=== PATIENT | male | born 1940 | race Caucasian/White ===

== ENCOUNTER → 2018-09-14 | Outpatient (CLI) | payer MEDICARE, BC ==
[2018-09-14 11:14] LABS: HEMATOCRIT 42.1 % (42.0-52.0); MEAN CORPUSCULAR HEMOGLOBIN 30.8 pg (27.0-33.0); MEAN CORPUSCULAR HGB CONC 33.3 g/dl (32.0-36.5); MEAN CORPUSCULAR VOLUME 92.7 fl (80.0-96.0); PLATELET COUNT, AUTOMATED 235 10^3/uL (150-450); RED BLOOD COUNT 4.54 10^6/uL (4.30-6.10); RED CELL DISTRIBUTION WIDTH 13.4 % (11.5-14.5); WHITE BLOOD COUNT 8.6 10^3/uL (4.0-10.0)
[2018-09-14 11:25] LABS: INR 1.02; PROTHROMBIN TIME 13.5 SECONDS (12.1-14.4)
[2018-09-14 11:34] LABS: ERYTHROCYTE SEDIMENTATION RATE 9 mm/hr (0-20)
[2018-09-14 11:44] LABS: ALBUMIN 3.7 GM/DL (3.2-5.2); ALBUMIN/GLOBULIN RATIO 1.09 (1.00-1.93); ALKALINE PHOSPHATASE 78 U/L (45-117); ALT/SGPT 27 U/L (12-78); ANION GAP 5 MEQ/L (8-16); AST/SGOT 17 U/L (7-37); BILIRUBIN,TOTAL 0.9 MG/DL (0.2-1.0); BLOOD UREA NITROGEN 17 MG/DL (7-18); CALCIUM LEVEL 9.3 MG/DL (8.8-10.2); CARBON DIOXIDE LEVEL 28 MEQ/L (21-32); CHLORIDE LEVEL 107 MEQ/L (98-107); CREATININE FOR GFR 0.95 MG/DL (0.70-1.30); GLOMERULAR FILTRATION RATE > 60.0 (>42); GLUCOSE, FASTING 106 MG/DL (70-100); SODIUM LEVEL 140 MEQ/L (136-145); TOTAL PROTEIN 7.1 GM/DL (6.4-8.2)
== END ==
LOC: M LAB 10:43
DX: Z01.818 Encounter for other preprocedural examination (principal); M17.12 Unilateral primary osteoarthritis, left knee
CPT/HCPCS: 71046

== ENCOUNTER 2018-09-29 09:02 | Inpatient (IN) | payer MEDICARE, BC ==
[2018-09-29] MEDS: ACETAMINOPHEN 500 MG TAB PO (09:15)
[2018-09-29] MEDS ORDERED: LR 1,000 ML IV (09:15)
[2018-09-29 09:55] LABS: GLUCOSE, FASTING 164 MG/DL (70-100)
[2018-09-29] MEDS ORDERED: fentaNYL 100 MCG/2 ML INJECTION (J3010) As Ordered (10:24)
[2018-09-29] MEDS ORDERED: MIDAZOLAM INJ 2 MG/2 ML VIAL (J2250) As Ordered ×2 (10:24→13:51)
[2018-09-29] MEDS: fentaNYL 100 MCG/2 ML INJECTION (J3010) IV (10:35)
[2018-09-29] MEDS: MIDAZOLAM INJ 2 MG/2 ML VIAL (J2250) IV (10:35)
[2018-09-29] MEDS ORDERED: dexameTHASONE 10 MG/1 ML VIAL PRES.FREE (J1100) (11:26)
[2018-09-29] MEDS ORDERED: LIDOCAINE 1% MDV 20ML VIAL (11:26)
[2018-09-29] MEDS ORDERED: ROPIvacaine 0.5% 30 ML INJECTION (J2795 PER 1MG) (11:26)
[2018-09-29] MEDS: ceFAZolin 1GM INJ (J0690 PER 500MG) As Ordered (11:49)
[2018-09-29] MEDS: BUPIVACAINE LIPOSOME/PF 1.3% 20ML VIAL (13.3MG/ML)(EXPAREL)(C9290 PER1MG) As Ordered (13:05)
[2018-09-29] MEDS: BUPIVACAINE HCL 0.25% 30 ML VIAL As Ordered (13:05)
[2018-09-29] MEDS: EPINEPHrine INJ 1 MG/ML 1ML AMP As Ordered (13:10)
[2018-09-29] MEDS: TRANEXAMIC ACID 100 MG/ML 10ML VIAL As Ordered (13:10)
[2018-09-29] MEDS ORDERED: MORPHINE 1MG/ML IN 0.9% NACL 100ML IV BAG As Ordered (13:35)
[2018-09-29] MEDS ORDERED: PROPOFOL 200 MG/20 ML VIAL As Ordered (13:51)
[2018-09-29] MEDS ORDERED: LIDOCAINE 2% INJ 100 MG/5 ML SDV (FOR ANES.) As Ordered (13:51)
[2018-09-29] MEDS ORDERED: ACETAMINOPHEN TAB 650MG DOSE (2X325MG) PO (14:00)
[2018-09-29] MEDS ORDERED: FLEET ENEMA PR (14:00)
[2018-09-29] MEDS ORDERED: HYDROMORPHONE HCL 0.5 MG/ 0.5 ML SYRINGE (J1170 PER 1) IV (14:15)
[2018-09-29] MEDS ORDERED: ONDANSETRON 4MG/2ML VIAL (J2405) IV ×2 (14:15)
[2018-09-29] MEDS ORDERED: fentaNYL 100 MCG/2 ML INJECTION (J3010) IV (14:15)
[2018-09-29] MEDS ORDERED: PERCOCET 5MG/325MG TAB PO (14:15)
[2018-09-29] MEDS ORDERED: NALBUPHINE HCL 10 MG/ML AMP (J2300) IV (14:15)
[2018-09-29] MEDS: LR 1,000 ML IV ×2 (14:15→17:01)
[2018-09-29] MEDS ORDERED: NALOXONE INJ 0.4 MG/1 ML VIAL (J2310) IV (14:15)
[2018-09-29] MEDS ORDERED: diphenhydrAMINE INJ 50MG/ML VIAL (J1200) IV (14:15)
[2018-09-29] MEDS ORDERED: EPIDURAL/PCA KEYS XX (14:15)
[2018-09-29 14:22] LABS: BEDSIDE GLUCOSE 135 MG/DL (83-110)
[2018-09-29] MEDS: MORPHINE 1MG/ML IN 0.9% NACL 100ML IV BAG IV (14:27)
[2018-09-29 17:27] LABS: BEDSIDE GLUCOSE 210 MG/DL (83-110)
[2018-09-29] MEDS ORDERED: GLUCOSE 4 GM CHEW TABLET PO (18:15)
[2018-09-29] MEDS ORDERED: GLUCAGON FOR INJ 1 MG VIAL (J1610) SC (18:15)
[2018-09-29] MEDS ORDERED: DEXTROSE 50% 50 ML SYRINGE IV (18:15)
[2018-09-29] MEDS: HumaLOG INSULIN (NovoLOG) PER UNIT SC (21:00)
[2018-09-29 21:16] LABS: BEDSIDE GLUCOSE 338 MG/DL (83-110)
[2018-09-30] MEDS: LR 1,000 ML IV (02:30)
[2018-09-30 06:12] LABS: HEMATOCRIT 34.6 % (42.0-52.0); HEMOGLOBIN 11.9 g/dl (13.5-17.5); MEAN CORPUSCULAR HEMOGLOBIN 30.8 pg (27.0-33.0); MEAN CORPUSCULAR HGB CONC 34.4 g/dl (32.0-36.5); MEAN CORPUSCULAR VOLUME 89.6 fl (80.0-96.0); PLATELET COUNT, AUTOMATED 210 10^3/uL (150-450); RED BLOOD COUNT 3.86 10^6/uL (4.30-6.10); RED CELL DISTRIBUTION WIDTH 13.2 % (11.5-14.5); WHITE BLOOD COUNT 14.4 10^3/uL (4.0-10.0)
[2018-09-30 06:30] LABS: ANION GAP 8 MEQ/L (8-16); BLOOD UREA NITROGEN 26 MG/DL (7-18); CALCIUM LEVEL 8.1 MG/DL (8.8-10.2); CARBON DIOXIDE LEVEL 24 MEQ/L (21-32); CHLORIDE LEVEL 105 MEQ/L (98-107); CREATININE FOR GFR 1.13 MG/DL (0.70-1.30); GLOMERULAR FILTRATION RATE > 60.0 (>42); GLUCOSE, FASTING 313 MG/DL (70-100); POTASSIUM SERUM 4.6 MEQ/L (3.5-5.1); SODIUM LEVEL 137 MEQ/L (136-145)
[2018-09-30] MEDS ORDERED: ONDANSETRON 4 MG TAB (S0181) PO (06:30)
[2018-09-30] MEDS ORDERED: PERCOCET 5MG/325MG TAB PO (06:30)
[2018-09-30] MEDS: MIRALAX *UNIT DOSE* 17GM PACKET PO (08:20)
[2018-09-30] MEDS: SENOKOT S TAB PO (08:22)
[2018-09-30] MEDS: HumaLOG INSULIN (NovoLOG) PER UNIT SC (08:22)
[2018-09-30] MEDS: ATORVASTATIN 20 MG TAB PO (08:22)
[2018-09-30] MEDS: MOM 30ML SUSPENSION UDC PO (08:22)
[2018-09-30] MEDS: QUINAPRIL 20 MG TAB PO (08:23)
[2018-09-30] MEDS: PERCOCET 5MG/325MG TAB PO (09:59)
[2018-09-30] MEDS ORDERED: RIVAROXABAN 10 MG TAB (XARELTO) PO (18:00)
[2018-09-30] MEDS ORDERED: CARVedilol 12.5 MG TAB PO (21:00)
== END 2018-09-30 10:20 | disposition home or self-care (01) | DRG 470 ==
LOC: M OR 09:02 → M MS5PR 14:50
PROVIDERS: Orthopaedic Surgery
PROC: 0SRD0J9 Replacement of Left Knee Joint with Synthetic Substitute, Cemented, Open Approach (ICD-10-PCS; principal; 2018-09-29 11:00)
DX: M17.12 Unilateral primary osteoarthritis, left knee (principal); Z79.82 Long term (current) use of aspirin; Z79.899 Other long term (current) drug therapy; E11.9 Type 2 diabetes mellitus without complications; E78.5 Hyperlipidemia, unspecified

== ENCOUNTER 2019-09-20 06:41 | Inpatient (IN) | payer MEDICARE, BC ==
--- NOTE | 2019-09-13 17:47 | HPE ---
DATE OF ADMISSION: 09/13/2019 CHIEF COMPLAINT: Preoperative appointment for right total ankle arthroplasty. HISTORY OF PRESENT ILLNESS: Davidson Watt is a 78-year-old male who is here for his preoperative visit for his right total ankle arthroplasty. He has continued to have worsening pain in his ankle. He has undergone his preoperative clearance. His most recent hemoglobin A1c was down to 6.2. He is all setup for surgery with a knee scooter and walker. PAST MEDICAL HISTORY: CAD DM Type 2, well controlled HTN Hyperlipidemia Vitiligo HOME MEDICATIONS: Aspirin, Coreg, MVI, Lantus, lipitor, metformin, vit E PAST SURGICAL HISTORY: Cholecystectomy Umbilical Hernia Repair Bilateral TKA PHYSICAL EXAMINATION: GENERAL: Well-appearing, alert and oriented, in no acute distress. CHEST: Lungs are clear to auscultation bilaterally. ABDOMEN: Soft, nontender. CARDIOVASCULAR: Regular rate and rhythm. EXTREMITIES: On the right lower extremity, there is continued pain and swelling across the tibiotalar joint. The patient has valgus alignment. He has intact dorsiflexion, plantar flexion, inversion and eversion. Normal sensation to light touch in the superficial, peroneal, deep peroneal, and tibial distribution. The foot is warm and well-perfused. IMPRESSION: Right ankle arthritis. PLAN: The patient will proceed with right total ankle arthroplasty. Risks and benefits were previously discussed with the patient and informed consent was obtained at his prior visit. He will be admitted to the hospital for at least one night. He will need medical co-management for his diabetes. All of the patient's and his 's questions were answered. He will be nonweightbearing for six weeks. PATTI
[~2019-09-20] VITALS: Ht 180.3 cm; Wt 106.6 kg
[2019-09-20] VITALS (7 sets, daily range): BP systolic 120–144; BP diastolic 46–70; O2SAT 98
[~2019-09-20 06:41] MED LIST: ACET65TA OR; ACTO15TA OR; APIDINJ2; APIDINJ2 SC; ASPI81TA85 PO; ATOR1TAB21 PO; ATOR40TA75; BYETTA INJ; CARV12.5; CARV12.5 PO; CARVEDIOL PO; COUM1TAB18 OR; FISH1000 PO; HUMALOG INJ; LANTINJ4; LANTINJ4 SC; LANTUS INSULIN INJ; LR 1,000 ML IV ONE; METF-791; METF500T13 PO; MULTCAP PO; MULTI VIT OR; PERC5TAB12 PO; PERC5TAB8 OR; PERC7.5T8 OR; PIOG15TA64 PO; PIOG1TAB36; QUIN1TAB4; QUIN40TA26 PO; QUINAPRIL OR; TRAM50TA2 PO; VITA400C5 PO; VITA500T PO; VITAMIN E PO; XARE10TA PO; ZOCOR PO; [UNRECOGNIZED DRUG - CODE] PO; ceFAZolin SOD 2 GM in IV 1 EA IV ONE; fentaNYL 100 MCG/2 ML INJECTION (J3010) IV SCH
[2019-09-20] MEDS ORDERED: MIDAZOLAM INJ 2 MG/2 ML VIAL (J2250) As Ordered ONE (07:33)
[2019-09-20] MEDS ORDERED: fentaNYL 100 MCG/2 ML INJECTION (J3010) As Ordered ONE ×2 (07:33→12:56)
[2019-09-20 07:42] LABS: GLUCOSE, FASTING 100 MG/DL (70-100)
[2019-09-20 07:43] LABS: BLOOD UREA NITROGEN 18 MG/DL (7-18); CARBON DIOXIDE LEVEL 25 MEQ/L (21-32); CHLORIDE LEVEL 111 MEQ/L (98-107); GLOMERULAR FILTRATION RATE > 60.0 (>42); POTASSIUM SERUM 4.6 MEQ/L (3.5-5.1); SODIUM LEVEL 142 MEQ/L (136-145)
[2019-09-20 07:45] LABS: HEMATOCRIT 42.2 % (42.0-52.0); HEMOGLOBIN 14.1 g/dl (13.5-17.5); MEAN CORPUSCULAR HEMOGLOBIN 31.1 pg (27.0-33.0); MEAN CORPUSCULAR HGB CONC 33.4 g/dl (32.0-36.5); MEAN CORPUSCULAR VOLUME 93.2 fl (80.0-96.0); PLATELET COUNT, AUTOMATED 226 10^3/uL (150-450); RED BLOOD COUNT 4.53 10^6/uL (4.30-6.10); WHITE BLOOD COUNT 8.5 10^3/uL (4.0-10.0)
[2019-09-20] MEDS: MIDAZOLAM INJ 2 MG/2 ML VIAL (J2250) IV SCH ×2 (08:21→08:24)
[2019-09-20] MEDS ORDERED: VITAMIN E 400 INTERNATIONAL UNITS CAP PO SCH (09:00)
[2019-09-20] MEDS: ASCORBIC ACID 500 MG TAB PO SCH (09:00)
[2019-09-20] MEDS ORDERED: ONDANSETRON 4MG/2ML VIAL (J2405) As Ordered ONE (09:17)
[2019-09-20] MEDS ORDERED: LIDOCAINE 2% INJ 100 MG/5 ML SDV (FOR ANES.) As Ordered ONE (09:17)
[2019-09-20] MEDS ORDERED: PROPOFOL 200 MG/20 ML VIAL As Ordered ONE (09:17)
[2019-09-20] MEDS ORDERED: fentaNYL 250 MCG/5 ML INJECTION (J3010) As Ordered ONE (09:17)
[2019-09-20] MEDS ORDERED: METOCLOPRAMIDE INJ 10MG/2ML VIAL (J2765) As Ordered ONE (09:17)
[2019-09-20] MEDS ORDERED: dexameTHASONE 4 MG/ML 1ML VIAL (J1100) As Ordered ONE (09:17)
[2019-09-20] MEDS ORDERED: SUGAMMADEX SODIUM 500 MG/5 ML VIAL (BRIDION) As Ordered ONE (09:17)
[2019-09-20] MEDS ORDERED: DESFLURANE 240 ML INHALANT As Ordered ONE (09:17)
[2019-09-20] MEDS ORDERED: ROCURONIUM BROMIDE 50 MG/5 ML VIAL As Ordered ONE (09:17)
[2019-09-20] MEDS ORDERED: ceFAZolin 2 GM/D5W 50 ML IV BAG (J0690 PER 500MG) As Ordered ONE (09:39)
[2019-09-20] MEDS ORDERED: LABETALOL HCL 100 MG/20 ML VIAL As Ordered ONE (11:19)
[2019-09-20] MEDS ORDERED: ACETAMINOPHEN 1000MG 100ML IV BTL (OFIRMEV) (J0131 PER 10MG) As Ordered ONE (13:18)
[2019-09-20] MEDS ORDERED: ceFAZolin 1GM INJ (J0690 PER 500MG) As Ordered ONE (13:28)
[2019-09-20] MEDS: ACETAMINOPHEN 500 MG TAB PO SCH ×2 (14:00→21:37)
[2019-09-20] MEDS ORDERED: ONDANSETRON 4MG/2ML VIAL (J2405) IV PRN (14:45)
[2019-09-20] MEDS ORDERED: LR 1,000 ML IV SCH ×2 (14:45→15:46)
[2019-09-20] MEDS ORDERED: PERCOCET 5MG/325MG TAB PO PRN (14:45)
[2019-09-20] MEDS: fentaNYL 100 MCG/2 ML INJECTION (J3010) IV PRN ×4 (15:34→16:28)
[2019-09-20] MEDS ORDERED: oxyCODONE 5MG TAB As Ordered ONE (15:37)
[2019-09-20] MEDS ORDERED: DEXTROSE 50% 50 ML SYRINGE IV PRN (15:45)
[2019-09-20] MEDS ORDERED: GLUCOSE 4 GM CHEW TABLET PO PRN (15:45)
[2019-09-20] MEDS ORDERED: oxyCODONE 5MG TAB PO PRN (15:45)
[2019-09-20] MEDS ORDERED: GLUCAGON FOR INJ 1 MG VIAL (J1610) SC PRN (15:45)
[2019-09-20] MEDS ORDERED: FLEET ENEMA PR PRN (15:46)
[2019-09-20] MEDS: oxyCODONE 5MG TAB PO PRN ×2 (15:49→19:06)
--- NOTE | 2019-09-20 15:54 | IPNPDOC ---
Date Seen The patient was seen on 09/20/19. Progress Note CONSULT FOR: Dr. Maria Elena Castaneda, orthopedics REASON FOR CONSULT: Medical management HISTORY OF PRESENT ILLNESS: This is a 78-year-old male with a pertinent past medical history of type 2 diabetes, hypertension, hyperlipidemia and coronary artery disease (status post angioplasty and cardiac catheterization in 1991) who underwent a total right ankle arthroplasty by Dr. Castaneda. The hospitalist service was called for medical management for his chronic medical problems specifically his diabetes. At the time of exam he has no complaints and his pain is currently well managed. He denies weight loss, hair loss, headache, visual changes, chest pain, shortness of breath, cough, nausea, vomiting, diarrhea, abdominal pain, muscle aches, worsening arthritis, change in mood. PAST MEDICAL HISTORY: 1. Diabetes type 2 2. CAD s/p angioplasty and cardiac catheterization in 1991. 3. HTN 4. HLD HOME MEDICATIONS: Please see below. ALLERGIES: Please see below PAST SURGICAL HISTORY: 1. Cholecystectomy 2. Umbilical hernia repair 3. R TKA and L TKA 4. Arthroscopy of the ankle 5. Right Shoulder Replacement SOCIAL HISTORY: Lives [facility]. Tobacco use : Denies. ETOH : Denies, Illicit drug use: Denies CODE STATUS: FAMILY HISTORY: Reviewed and noncontributory. Denies family history of osteopenia or osteoporosis REVIEW OF SYSTEMS: 10 systems reviewed and negative other than HPI PHYSICAL EXAMINATION: VITAL SIGNS: Please see below GENERAL: Pleasant 78-year-old male laying bed awake alert oriented speaking in complete sentences no acute distress HEENT: Moist mucous membranes no JVD. Vitiligo skin changes appreciated on his chin CARDIOVASCULAR: S1 S2 regular no additional heart sounds appreciated. RESPIRATORY: Clear to auscultation bilaterally. ABDOMINAL: Bowel sounds present abdomen soft and nontender EXTREMITIES: No clubbing cyanosis or edema. Right ankle wrapped in an Donovan bandage with a MARY drain in place. The bandage appears clean dry and intact. No edema is noted. NEUROLOGICAL: cranial 2 through 12 grossly intact no gross focal deficits appreciated] PSYCHOLOGICAL: Appropriate LABORATORY DATA: See below. MICROBIOLOGY: Please see below. IMAGING: None ASSESSMENT & PLAN: This is a 78-year-old male status post total right ankle arthroplasty. PROBLEMS: 1. Right Ankle arthritis status post right total ankle arthroplasty -Pain management as prescribed by orthopedics 2. DM2: - consistent carbohydrate diet is recommended -SSI with hypoglycemic protocol - start Levemir 35 units in the AM while admitted vs home lantus -Hold home PioglitazLEQUINone and Metformin 3. HTN: -Continue Quinapril 4. CAD: -Continue Carvedilol 5. HLD: -c/w Atorvastatin DVT PROPHYLAXIS: Xarelto 10 mg daily Thank you for this interesting consult, we will continue to follow along with you. Please Vocera secure text or call with any specific questions. MEDICAL ATTENDING PHYSICIAN ADDENDUM: I have independently interviewed and examined the patient, and agree with the physical findings, assessment, and management plan as documented above by my Resident physician. VS, I&O, 24H, Fishbone Vital Signs/I&O Vital Signs Date Time Temp Pulse Resp B/P (MAP) Pulse Ox O2 Delivery O2 Flow Rate FiO2 09/20/19 15:50 18 09/20/19 15:45 60 140/69 (92) 94 Nasal Cannula 3 09/20/19 15:09 98.1 Laboratory Data 24H LABS Laboratory Tests 2 09/20/19 07:07: Nucleated Red Blood Cells % (auto) 0.0 09/20/19 07:08: Anion Gap 6L, Glomerular Filtration Rate > 60.0, Calcium Level 9.0 09/20/19 14:39: Bedside Glucose (Misc Panel) 154H CBC/BMP Laboratory Tests 09/20/19 07:07 09/20/19 07:08 AYO BATISTA DO Sep 20, 2019 15:54 GRADY COMBS MD Sep 20, 2019 16:27
[2019-09-20] MEDS ORDERED: MORPHINE 2 MG/ML 1ML VIAL (J2270) IV PRN (16:00)
--- NOTE | 2019-09-20 16:04 | REP ---
Right ankle: 13 views. History: Intraoperative imaging. Ankle arthroplasty. 3.7 minutes of fluoroscopy time was utilized. Findings: A sequence of 13 last image hold fluoroscopically obtained spot radiographs of the ankle document operative manipulation and arthroplasty placement. No laterality markers are visible. Electronically Signed by Phill Griffith MD 09/20/2019 04:24 P
[2019-09-20] MEDS: HumaLOG INSULIN (NovoLOG) PER UNIT SC SCH (17:30)
[2019-09-20] MEDS: ceFAZolin SOD 2 GM in IV 1 EA IV SCH (19:05)
[2019-09-20] MEDS ORDERED: ATORVASTATIN 20 MG TAB PO SCH (21:00)
[2019-09-20] MEDS ORDERED: HumaLOG INSULIN (NovoLOG) PER UNIT SC SCH (21:00)
[2019-09-20] MEDS ORDERED: OMEGA-3 1000MG CAPSULE PO SCH (21:00)
[2019-09-20] MEDS ORDERED: CO-ENZYME Q10 50 MG CAP PO SCH (21:00)
[2019-09-20] MEDS: QUINAPRIL 20 MG TAB PO SCH (21:38)
[2019-09-20] MEDS: CARVedilol 12.5 MG TAB PO SCH (21:39)
[2019-09-21] MEDS: ceFAZolin SOD 2 GM in IV 1 EA IV SCH (01:27)
[2019-09-21 02:05] VITALS: BP 120/50
[2019-09-21] MEDS: oxyCODONE 5MG TAB PO PRN ×2 (03:15→08:01)
[2019-09-21] MEDS: ACETAMINOPHEN 500 MG TAB PO SCH (05:10)
[2019-09-21 05:32] VITALS: BP 120/52
[2019-09-21 06:18] LABS: MEAN CORPUSCULAR HEMOGLOBIN 31.1 pg (27.0-33.0); MEAN CORPUSCULAR HGB CONC 33.1 g/dl (32.0-36.5); MEAN CORPUSCULAR VOLUME 93.8 fl (80.0-96.0); PLATELET COUNT, AUTOMATED 188 10^3/uL (150-450); RED BLOOD COUNT 3.73 10^6/uL (4.30-6.10); WHITE BLOOD COUNT 15.4 10^3/uL (4.0-10.0)
[2019-09-21 06:24] LABS: HEMOGLOBIN 11.6 g/dl (13.5-17.5)
[2019-09-21 06:36] LABS: HEMOGLOBIN A1c 7.1 %
[2019-09-21 06:57] LABS: CALCIUM LEVEL 7.7 MG/DL (8.8-10.2); CHOLESTEROL RISK RATIO 2.089 (<5); CREATININE FOR GFR 1.35 MG/DL (0.70-1.30); GLOMERULAR FILTRATION RATE 54.7 (>42); POTASSIUM SERUM 4.8 MEQ/L (3.5-5.1); THYROID STIMULATING HORMONE 0.894 uIU/ML (0.358-3.740)
[2019-09-21] MEDS ORDERED: XARE10TA PO (07:39)
[2019-09-21] MEDS ORDERED: OXYC-517 PO (07:39)
[2019-09-21] MEDS: HumaLOG INSULIN (NovoLOG) PER UNIT SC SCH (08:00)
[2019-09-21 08:40] VITALS: BP 118/56
[2019-09-21] MEDS ORDERED: MIRALAX *UNIT DOSE* 17GM PACKET PO SCH (09:00)
[2019-09-21] MEDS ORDERED: LEVEMIR (INSULIN DETEMIR) 1 UNITS/0.01ML SC SCH (09:00)
[2019-09-21] MEDS ORDERED: MULTIVITAMINS/MINERALS THERAP 1 TAB PO SCH (09:00)
[2019-09-21] MEDS ORDERED: MOM 30ML SUSPENSION UDC PO SCH (09:00)
[2019-09-21] MEDS: CARVedilol 12.5 MG TAB PO SCH (09:01)
[2019-09-21] MEDS: ASCORBIC ACID 500 MG TAB PO SCH (09:01)
[2019-09-21 09:03] VITALS: BP 118/56
[2019-09-21] MEDS: QUINAPRIL 20 MG TAB PO SCH (09:03)
[2019-09-21 10:00] VITALS: BP 129/59
--- NOTE | 2019-09-21 10:02 | IPNPDOC ---
Text Note Date of Service The patient was seen on 09/21/19. NOTE SUBJECTIVE: Patient seen and examined at bedside. He is post to be discharged home today. He states that the only thing holding him up, is that his nerve block has not yet worn off. Once it has worn off and he can wiggle his toes, he will be discharged. He denies any fevers, chills, nausea, or vomiting. His pain is well controlled, per Ortho. His sugar was high this morning, however he does take his long-acting insulin in the morning. OBJECTIVE: VITAL SIGNS: Please see below GENERAL: Pleasant older male sitting bed; awake alert oriented speaking in complete sentences; no acute distress HEENT: Atraumatic, normocephalic. No JVD. CARDIOVASCULAR: Regular rate and rhythm; no murmurs, gallops, or rubs RESPIRATORY: Clear to auscultation bilaterally; no wheezes, rhonchi, or rales ABDOMINAL: Normoactive bowel sounds in all 4 quadrants, soft, nontender, nondistended. No masses palpable EXTREMITIES: No clubbing cyanosis or edema. Right ankle wrapped in an Donovan bandage which appears clean dry and intact. No edema is noted. NEUROLOGICAL: CN II-XII grossly intact, no focal deficits noted SKIN: Vitiligo hyperpigmentation appreciable on the patient's chin and hands bilaterally PSYCHOLOGICAL: Answers questions appropriately LABORATORY DATA: See below. ASSESSMENT & PLAN: This is a 78-year-old male POD# 1, status post total right ankle arthroplasty. PROBLEMS: 1. Right Ankle arthritis status post right total ankle arthroplasty -Pain management and DVT prophylaxis as prescribed by orthopedics 2. DM2: - consistent carbohydrate diet is recommended -SSI with hypoglycemic protocol -Hyperglycemic this morning, will receive Levemir 35 units in the AM -Can resume home PioglitazLEQUINone, Metformin, and home Lantus upon discharge 3. HTN: -Continue Quinapril 4. CAD: -Continue Carvedilol 5. HLD: -c/w Atorvastatin DVT PROPHYLAXIS: Xarelto 10 mg daily per ortho VS,Fishbone, I+O VS, Fishbone, I+O Laboratory Tests 09/21/19 06:04 Vital Signs Date Time Temp Pulse Resp B/P (MAP) Pulse Ox O2 Delivery O2 Flow Rate FiO2 09/21/19 09:03 118/56 09/21/19 09:01 56 09/21/19 08:40 18 96 Room Air 09/21/19 05:32 98.2 09/20/19 16:38 3 I&O- Last 24 Hours up to 6 AM 09/21/19 06:00 Intake Total 3020 ml Output Total 1215 ml Balance 1805 ml GME ATTESTATION GME ATTESTATION My faculty preceptor for this patient encounter was physically present during the encounter and was fully available. All aspects of the patient interview, examination, medical decision making process, and medical care plan development were reviewed and approved by the faculty preceptor. The faculty preceptor is aware and concurs with the plan as stated in the body of this note and will attest to such by his/her cosignature. ATTENDING NOTE I have personally evaluated and examined the patient. Discussed with residents and student regarding plan of care and agree with the above assessment and plan. ACOSTA AYON D.O. Sep 21, 2019 10:02 TATA MONTERROSO MD Sep 21, 2019 18:26
[2019-09-21] MEDS ORDERED: RIVAROXABAN 10 MG TAB (XARELTO) PO SCH (18:00)
--- NOTE | 2019-09-23 20:00 | DSES ---
DATE OF ADMISSION: 09/20/2019 DATE OF DISCHARGE: 09/21/2019 ADMISSION DIAGNOSIS: Right ankle arthritis. OTHER DIAGNOSES: 1. Diabetes mellitus, type 2. 2. Hypertension. 3. Coronary artery disease. 4. Hyperlipidemia. DISCHARGE DIAGNOSIS: Right ankle arthritis status post right ankle arthroplasty. OPERATION PERFORMED: Right ankle total arthroplasty. HISTORY: This is a 78-year-old male patient with progressively worsening right ankle pain and stiffness. He failed to improve with conservative management and was admitted for elective right ankle total arthroplasty. HOSPITAL COURSE: The patient was admitted on the day of surgery and underwent a right total ankle arthroplasty, which was uneventful. He did well in the postoperative period and was working with physical therapy per protocol. He will follow deep vein thrombosis (DVT) prophylaxis per protocol. He will resume his preoperative medications and diet along with oral pain medications for pain control. He was given instructions to include, but not limited to, wound monitoring and activity limitations. He will follow up in office in approximately 3 days' time for surgical followup. Please refer to the medical record for further details.
--- NOTE | 2019-10-14 08:49 | RO ---
DATE OF PROCEDURE: 09/20/2019 PREPROCEDURE DIAGNOSIS: Right advanced ankle osteoarthritis. POSTPROCEDURE DIAGNOSIS: Right advanced ankle arthritis. PROCEDURE: 1. Right total ankle replacement. 2. Open reduction, internal fixation (ORIF) of the right medial malleolus. SURGEON: Maria Elena Castaneda MD WAREHOUSE PACKER: Jarret Calles MD and EDDIE Reinoso ESTIMATED BLOOD LOSS: 150 mL. IMPLANTS: Advantage total ankle replacement, size 3 tibia, size 4 talus, and 8 mm polyethylene in addition to one-third tubular locking plate and screws. COMPLICATIONS: None. CONDITION: Stable to recovery. INDICATIONS: Davidson Watt is a 78-year-old male who has had long standing pain and deformity due to advanced right ankle arthritis. He has failed conservative measures. Risks and benefits of surgery were discussed with the patient in detail and include, but are not limited to infection, damage to nerves and blood vessels, continued pain and stiffness, need for additional procedures. Informed consent was obtained in the office. DESCRIPTION OF PROCEDURE: The patient was met in the preoperative holding area where his right lower extremity was marked as the correct operative side. He underwent a nerve block by the anesthesia team. He was taken to the operating room and placed in the supine position on the operating room table. Bony prominences were well padded. A well padded tourniquet was placed on the right upper thigh. Right lower extremity underwent chlorhexidine scrub. It was then prepped and draped in the normal sterile fashion. The patient received antibiotics within 60 minutes prior to incision. An official time out was held where the correct patient, operative site and operative procedure were verified. The right leg was exsanguinated and I did attempt to place a tourniquet but unfortunately the tourniquet was malfunctioning. We did have to take down the sterile field and get a new tourniquet, which was replaced. We then prepped and draped the patient again. At this point, he did require another dose of antibiotics as it had been over an hour. This was all performed and another time out was done and then once again the leg was exsanguinated and the tourniquet was inflated to 250 mmHg. An incision was made over the anterior aspect of the ankle and standard anterior approach to the tibiotalar joint. The superficial peroneal nerve was retracted. A small medial branch was resected. The of this between the tibialis anterior and EHL was identified. The neurovascular bundle was retracted laterally. At this point, I gained satisfactory access to the tibiotalar joint. There was advanced osteoarthritis and there were essentially no areas of cartilage left on either side of the joint. The alignment guide was placed over the ankle and a small incision was made over the tibial tubercle for placement of the pin. After the alignment guide was placed, I did determine the rotation of the implant using the medial gutter fork. After this was established, the distal tibial cutting block was attached and size 3 was found to be satisfactory. I set my resection height and the tibial cutting block was pinned in placed. The distal tibia was resected. Although this had been checked radiographically, the cut was slightly over medial than anticipated. Plans were made at this point to place a medial malleolus for further protection. After the tibial cut was performed, I did place the talar block and resected the talus. Resection was verified and tibial size was again performed using the AP sizing tool. Again, size 3 tibia was found to be satisfactory. The distractor and lollipop were placed on the talar cut. At this point, there appeared to be a small fracture seen in the anterior aspect of the medial malleolus and so attention was then turned medially where I made an incision over the medial aspect of the ankle. I did place a one-third tubular plate and screws to protect the medial malleolus from any further fracture. The distractor and lollipop were placed in the talar cuts again and pinned. I then made the posterior chamfer cut and milled anteriorly. The anterior pins were removed and then I cut the second posterior chamfer cut. A rasp was then used over the talus to remove any high spots. After that, I trialed to size 4 tibia, which was found to be satisfactory. The peg holes were drilled. The talar guide was then removed and the tibia was replaced and the center and posterior pegs were punched. After this, copious irrigation was performed to repair the tibia. The final tibial component and talus components were impacted. The polyethylene was then locked in place. Multiple x-rays were performed in AP, lateral and oblique views and found to be satisfactory. I did clean both the medial and lateral gutters as well. Again, copious irrigation was performed. Capsule was closed and MARY drain was placed. The retinaculum was closed followed by closure of the subcutaneous tissues with #3-0 Vicryl and skin with #3-0 nylon. Sterile dressing was applied and patient was placed into a well padded splint. Hew as extubated and transferred to the recovery room in stable condition. PLAN: The patient will be non weightbearing for 6 weeks. He will be on Xarelto for 3 weeks for deep vein thrombosis (DVT) prophylaxis and then will transfer to aspirin. He will stay on antibiotics for 24 hours.
== END 2019-09-21 11:20 | disposition home or self-care (01) | DRG 469 ==
LOC: M OR 06:41 → M MS5PR 16:55
PROVIDERS: ADMIT Orthopaedic Surgery; ATTEND Orthopaedic Surgery
PROC: 0QSG04Z Reposition Right Tibia with Internal Fixation Device, Open Approach (ICD-10-PCS; 2019-09-20)
PROC: 0SRF0JZ Replacement of Right Ankle Joint with Synthetic Substitute, Open Approach (ICD-10-PCS; principal; 2019-09-20 08:30)
DX: M19.071 Primary osteoarthritis, right ankle and foot (principal); I25.10 Atherosclerotic heart disease of native coronary artery without angina pectoris; E11.9 Type 2 diabetes mellitus without complications; I10 Essential (primary) hypertension; E78.5 Hyperlipidemia, unspecified; Z79.82 Long term (current) use of aspirin; Z79.899 Other long term (current) drug therapy; Z96.651 Presence of right artificial knee joint; Z96.652 Presence of left artificial knee joint

== ENCOUNTER → 2019-11-03 | Outpatient (REF) | payer MEDICARE, BC ==
[~2019-11-03] MED LIST changes: -LR 1,000 ML IV ONE; +OXYC-517 PO; -ceFAZolin SOD 2 GM in IV 1 EA IV ONE; -fentaNYL 100 MCG/2 ML INJECTION (J3010) IV SCH
== END ==
LOC: M LABDRAW1 10:01
PROVIDERS: ATTEND Orthopaedic Surgery
DX: Z47.1 Aftercare following joint replacement surgery (principal); Z79.899 Other long term (current) drug therapy

== ENCOUNTER 2023-02-12 11:27 | Day surgery (SDC) | payer MEDICARE, BC ==
[~2023-02-12] VITALS: Ht 180.3 cm; Wt 99.3 kg
[~2023-02-12 11:27] MED LIST changes: -ASPI81TA85 PO; +ASPI81TA86 PO; +BSS IRRIG/VANCO(10MG)/TOBRA(5MG)/EPINEPH(1:1000-0.5CC)500ML BAG-ORONLY IR ONE; +CEFUROXIME 1MG/0.1ML INTRACAMERAL INJ As Ordered ONE; +CYCLOPENTOLATE 1% OPHTH SOLN 2ML BTL OS SCH; +JARD1TAB; +LIDOCAINE 1% SDV 5ML VIAL As Ordered ONE; +LIDOCAINE 3.5 % 1ML OPHTH TOPICAL GEL OU ONE; +LISI5TAB11; -METF-791; +METF-838; +OFLOXACIN 0.3 % (OCUFLOX) OPTH SOL 5ML OS ONE; +OMEG10002 PO; +PHENYLEPHRINE 10% OPHTH SOL 5ML OS PRN; +PHENYLEPHRINE 2.5% OPHTH SOL 2ML OS SCH; +TROPICAMIDE 1% OPHTH SOLN 15ML OS SCH; +VITA-243 PO; -VITA400C5 PO; +VITA400C83 PO; -VITA500T PO
[2023-02-12] MEDS ORDERED: MIDAZOLAM INJ 2MG/2ML VIAL As Ordered ONE (12:30)
[2023-02-12] MEDS ORDERED: fentaNYL 100 MCG/2 ML INJECTION As Ordered ONE (12:30)
[2023-02-12 14:22] VITALS: BP 144/63
== END 2023-02-12 14:36 | disposition home or self-care (01) ==
LOC: M SDC 11:27
PROVIDERS: ATTEND Ophthalmology
DX: H25.12 Age-related nuclear cataract, left eye (principal); I25.10 Atherosclerotic heart disease of native coronary artery without angina pectoris; I25.2 Old myocardial infarction; I10 Essential (primary) hypertension; E78.5 Hyperlipidemia, unspecified; E11.9 Type 2 diabetes mellitus without complications; Z85.51 Personal history of malignant neoplasm of bladder; Z95.2 Presence of prosthetic heart valve; Z79.4 Long term (current) use of insulin; Z79.84 Long term (current) use of oral hypoglycemic drugs; Z79.899 Other long term (current) drug therapy
CPT/HCPCS: 66984; J0697; J2250; J3010; V2632

== ENCOUNTER 2023-03-26 10:23 | Day surgery (SDC) | payer MEDICARE, BC ==
[~2023-03-26] VITALS: Ht 180.3 cm; Wt 98.8 kg
[~2023-03-26 10:23] MED LIST changes: +CYCLOPENTOLATE 1% OPHTH SOLN 2ML BTL OD SCH; -CYCLOPENTOLATE 1% OPHTH SOLN 2ML BTL OS SCH; -JARD1TAB; +JARD1TAB PO; -LISI5TAB11; +LISI5TAB11 PO; +OFLOXACIN 0.3 % (OCUFLOX) OPTH SOL 5ML OD ONE; -OFLOXACIN 0.3 % (OCUFLOX) OPTH SOL 5ML OS ONE; +PHENYLEPHRINE 10% OPHTH SOL 5ML OD PRN; -PHENYLEPHRINE 10% OPHTH SOL 5ML OS PRN; +PHENYLEPHRINE 2.5% OPHTH SOL 2ML OD SCH; -PHENYLEPHRINE 2.5% OPHTH SOL 2ML OS SCH; +TROPICAMIDE 1% OPHTH SOLN 15ML OD SCH; -TROPICAMIDE 1% OPHTH SOLN 15ML OS SCH; +fentaNYL 100 MCG/2 ML INJECTION As Ordered ONE
[2023-03-26 12:10] VITALS: BP 160/72
== END 2023-03-26 12:29 | disposition home or self-care (01) ==
LOC: M SDC 10:23
PROVIDERS: ATTEND Ophthalmology
DX: H25.11 Age-related nuclear cataract, right eye (principal); E11.9 Type 2 diabetes mellitus without complications; I25.10 Atherosclerotic heart disease of native coronary artery without angina pectoris; I25.2 Old myocardial infarction; I10 Essential (primary) hypertension; E78.5 Hyperlipidemia, unspecified; Z95.1 Presence of aortocoronary bypass graft; Z79.899 Other long term (current) drug therapy; Z85.51 Personal history of malignant neoplasm of bladder; Z79.4 Long term (current) use of insulin
CPT/HCPCS: 66984; J0697; J3010; V2632

== ENCOUNTER 2025-01-11 10:49 | Day surgery (SDC) | payer MEDICARE ==
[~2025-01-11] VITALS: Ht 180.3 cm; Wt 101.6 kg
[~2025-01-11 10:49] MED LIST changes: -BSS IRRIG/VANCO(10MG)/TOBRA(5MG)/EPINEPH(1:1000-0.5CC)500ML BAG-ORONLY IR ONE; -CEFUROXIME 1MG/0.1ML INTRACAMERAL INJ As Ordered ONE; -CYCLOPENTOLATE 1% OPHTH SOLN 2ML BTL OD SCH; -LIDOCAINE 1% SDV 5ML VIAL As Ordered ONE; -LIDOCAINE 3.5 % 1ML OPHTH TOPICAL GEL OU ONE; -OFLOXACIN 0.3 % (OCUFLOX) OPTH SOL 5ML OD ONE; -PHENYLEPHRINE 10% OPHTH SOL 5ML OD PRN; -PHENYLEPHRINE 2.5% OPHTH SOL 2ML OD SCH; -TROPICAMIDE 1% OPHTH SOLN 15ML OD SCH; -fentaNYL 100 MCG/2 ML INJECTION As Ordered ONE
[2025-01-11] MEDS ORDERED: LR 1,000 ML IV SCH ×2 (11:10→13:30)
[2025-01-11] MEDS ORDERED: ONDANSETRON 4MG 2ML VIAL As Ordered ONE (13:17)
[2025-01-11] MEDS: CIPRODEX OTIC SUSP 7.5ML As Ordered ONE (13:22)
[2025-01-11] MEDS ORDERED: oxyCODONE 5MG TAB PO PRN (13:30)
[2025-01-11] MEDS ORDERED: HYDROMORPHONE HCL 0.5 MG/ 0.5 ML SYRINGE IV PRN (13:30)
[2025-01-11] MEDS ORDERED: ONDANSETRON 4MG 2ML VIAL IV PRN (13:30)
[2025-01-11] MEDS ORDERED: fentaNYL 100 MCG/2 ML INJECTION IV PRN (13:30)
[2025-01-11 14:20] VITALS: BP 132/91; TEMP 98.5; O2SAT 96
== END 2025-01-11 14:30 | disposition home or self-care (01) ==
LOC: M SDC 10:49
PROVIDERS: ATTEND Otolaryngology
DX: H69.83 Other specified disorders of Eustachian tube, bilateral (principal); H65.23 Chronic serous otitis media, bilateral; H73.891 Other specified disorders of tympanic membrane, right ear; H90.3 Sensorineural hearing loss, bilateral; Z79.899 Other long term (current) drug therapy; Z79.84 Long term (current) use of oral hypoglycemic drugs; Z79.4 Long term (current) use of insulin
CPT/HCPCS: 69436; J1100; J2405

== ENCOUNTER → 2025-03-16 | Outpatient (REF) | payer MEDICARE ==
[~2025-03-16] MED LIST changes: +CO Q1CAP PO; -[UNRECOGNIZED DRUG - CODE] PO
== END ==
LOC: M LAB REF 17:17
PROVIDERS: ATTEND Otolaryngology
DX: H92.11 Otorrhea, right ear (principal)